=== PATIENT | male | born 1995 | race Two or more races ===

== ENCOUNTER 2024-05-09 13:05 | Emergency (ER) | payer OTHER ==
[~2024-05-09] VITALS: Ht 182.9 cm; Wt 83.5 kg
[2024-05-09 13:45] LABS: Basophils # (auto) 0 10 ^3/uL (0-0.2); Basophils % (auto) 0.1 % (0.0-2.0); Eosinophils # (auto) 0.1 10 ^3/uL (0-0.8); Hematocrit 50.6 % (41.0-53.0); Hemoglobin 17.4 g/dL (13.5-17.5); Lymphocytes # (auto) 0.6 10 ^3/uL (0.4-5.4); Lymphocytes % (auto) 5.3 % (10.0-50.0); Mean Corpuscular Hgb Conc. 34.3 g/dL (32.0-36.0); Mean Corpuscular Volume 90.4 fL (80.0-100.0); Monocytes # (auto) 0.7 10 ^3/uL (0-1.3); Monocytes % (auto) 6.6 % (0.0-12.0); Neutrophils # (auto) 9.4 10 ^3/uL (1.6-8.6); Red Cell Distribution Width 14.6 % (11.8-14.3); White Blood Cell 10.8 10^3/uL (4.4-10.8)
[2024-05-09 13:57] LABS: Chloride 109 mmol/L (98-107); Potassium 4.6 mmol/L (3.5-5.1); Sodium 140 mmol/L (136-145)
[2024-05-09 13:58] LABS: Anion Gap 6 (5-15); Calcium 9.7 mg/dL (8.5-10.1); Carbon Dioxide 25 mmol/L (20-30)
[2024-05-09 14:03] LABS: BUN/Creatinine Ratio 21.7 (10.0-20.0); Blood Urea Nitrogen 20 mg/dL (9-23); Glucose 94 mg/dL (74-106)
[2024-05-09] MEDS: SODIUM CHLORIDE 0.9% 1,000 ML IV ONE ×2 (14:15→15:38)
[2024-05-09] MEDS: ONDANSETRON HCL 4 MG/2 ML VIAL IV ONE (14:15)
[2024-05-09 14:31] VITALS: RESP 18; O2SAT 96
[2024-05-09 14:48] VITALS: TEMP 99.8
[2024-05-09] MEDS ORDERED: ZOFR4T PO (15:26)
[2024-05-09 16:22] VITALS: BP 121/77; PULSE 100; RESP 16; O2SAT 97
== END 2024-05-09 16:35 | disposition home or self-care (01) ==
LOC: EDBD 13:05 → ER 13:05
DX: T67.5XXA Heat exhaustion, unspecified, initial encounter (principal); R11.2 Nausea with vomiting, unspecified; X58.XXXA Exposure to other specified factors, initial encounter; Y93.89 Activity, other specified; Y92.89 Other specified places as the place of occurrence of the external cause; Y99.0 Civilian activity done for income or pay
CPT/HCPCS: 36415; 80048; 85025; 96361; 96374; 99283; J2405; J7030

== ENCOUNTER 2024-05-10 09:16 | Emergency (ER) | payer OTHER ==
[~2024-05-10] VITALS: Ht 182.9 cm; Wt 85.7 kg
[~2024-05-10 09:16] MED LIST: ZOFR4T PO
[2024-05-10 11:06] VITALS: BP 117/75; PULSE 82; RESP 16; TEMP 98.5; O2SAT 97
== END 2024-05-10 11:15 | disposition home or self-care (01) ==
LOC: ER 09:16
DX: T67.5XXD Heat exhaustion, unspecified, subsequent encounter (principal); Z00.00 Encounter for general adult medical examination without abnormal findings; X58.XXXD Exposure to other specified factors, subsequent encounter